=== PATIENT | female | born 1985 | race Caucasian/White ===

== ENCOUNTER 2017-05-17 18:26 | Inpatient (IN) | payer MEDICAID, OTHER ==
[~2017-05-17] VITALS: Ht 167.6 cm; Wt 60.0 kg
[2017-05-17] MEDS ORDERED: Magnesium Hydroxide 10 mL Oral Concentration PO PRN (23:50)
[2017-05-17] MEDS ORDERED: Benzocaine-Menthol Lozenge 2/Pkg PO PRN (23:50)
[2017-05-17] MEDS ORDERED: diphenhydrAMINE 50 mg Capsule PO PRN (23:50)
[2017-05-17] MEDS ORDERED: Alum-Mag Hydrox-Simeth 30 mL Suspension PO PRN (23:50)
--- NOTE | 2017-05-18 01:04 | NUR ---
Nursing Admit Note Pt arrival with hospital staff and security via stretcher from [facility] at 2310. Jelena is JEROD'ed from [facility] on May 17 at 1735. Is reported that patient is a danger to self and others. Noted to require restraints prior to arrival through the night. Pt appears hypomanic, paranoid and religiously preoccupied. Pt denies mental health care or medications in recent past. Reports one hospitalization at [facility] approximately two years ago. Denies any diagnosis at that time. Noted from previous acute care facility to have recently quit her job and writing threatening remarks to friends on face book. Pt was picked up by police at her motel room r/t complaints of noise and bizarre behavior with a torch and bean picker fluid somehow involved. Pt reports meeting the police at the door with a knife because they where sneaking around. Is reported patient physically resisted arrest. During intake interview patient was asked to remove her multiple necklaces which she did, but staff was not to touch them, and insisted that we record said necklaces as Gold with each having a certain gold content which we did not confirm. Pt accepted medications upon arrival, had snacks and took a shower prior to going to sleep.
[2017-05-18 12:31] VITALS: BP 108/63; PULSE 94; RESP 18
[2017-05-18] MEDS ORDERED: Benzocaine-Menthol Lozenge 2/Pkg PO PRN (14:15)
--- NOTE | 2017-05-18 15:16 | HP ---
[address] [address] HISTORY AND PHYSICAL PATIENT: SONAL SCHAEFFER : 1985 MR#: [id number] ADMIT: 05/17/2017 JOB ID: [id number] IDENTIFICATION: The patient is a 31-year-old single, white female. She is currently staying at a [facility] [place] and [place]. She has two children ages seven and nine that stay with the grandmother in [place]. She is on social security disability for unclear reasons. REASON FOR ADMISSION: Client detained at the [facility] for grave disability, danger to self and danger to others after police were called to the [facility] [place] for a disturbance and patient was found with a large knife in her hand, a blow torch and dump worker fluid. She made threats that she was going to burn the hotel room down. HISTORY OF PRESENT ILLNESS: The patient presents for evaluation and treatment of psychosis. I met with her for a 60 minute evaluation and reviewed course and records kept by [facility]. I also reviewed course and records kept by [facility] and her skilled nursing paperwork. The patient's main issue is psychosis. The condition is acute and has been developing over an unclear number of days. At present, it is of a moderate intensity manifesting with symptoms of thought disorganization, paranoia and difficulty with impulse control. All the above symptoms are made worse by interpersonal relationship conflicts. She stated that she was under extreme stress due to "white trash dramas." Client is a relatively poor historian due to thought disorganization and she had a difficult time relating a coherent history. She is not on any medications and stated that she had not previously been treated except for a two day stay at [facility] for unclear reasons. She stated that she is sleeping excessively and has a high amount of anxiety mainly due, per her report, interpersonal relationship conflicts. Currently she is presenting with moderate emotional liability and impairment in reality testing. Her judgment, insight and impulse control are all impaired. PSYCHIATRIC REVIEW OF SYSTEMS: For depression, yony, and trauma were negative. SUBSTANCE ABUSE: Positive for daily marijuana. Psychosis positive for delusional thought. Believes she has an FBI secret agent involved with the [place] mob. Believes she has special ruiz and has significant thought disorganization. PHYSICAL REVIEW OF SYSTEMS: Negative for constitution, cardiac, respiratory, GI, or genitourinary systems. MEDICATIONS: None. ALLERGIES: SULFA. ILLNESSES: None. FAMILY MEDICAL HISTORY: Client is a poor historian. PAST PSYCHIATRIC HISTORY: Client poor historian. Reports one admission at [facility] for two days within the past five years. PSYCHOSOCIAL HISTORY: Client states she was born at [facility] in [place]. At age [age] she stated her mother relinquished care to her grandparents. HISTORY OF TRAUMA: Client denies. DRUG AND ALCOHOL: Client smokes cigarettes and marijuana daily. Denies IV drug abuse. LETHALITY: Denies suicidal ideation, previous suicide attempts or homicidal ideation. RELATIONSHIP HISTORY: Single, two children, ages seven and nine currently with their grandmother. CONGREGATION: "A Masonic Tenriism." LEGAL HISTORY: None. VITAL SIGNS: 108/63, pulse 94, respirations 18, afebrile. PHYSICAL EXAMINATION: Reviewed from [facility] and normal. LABORATORIES: Electrolytes, thyroid, liver function normal. CBC normal. UA normal. UDS positive for THC. MENTAL STATUS EXAMINATION: Client appeared disheveled with multiple sores on face and forearms. She has primitive tattoos on arms and legs. She had good eye contact. Her behavior was energetic and restless. Attitude was cooperative and friendly. Speech normal rate and rhythm. Mood: Euphoric. Affect congruent, high intensity. Thought process: Client had a difficult time relating a coherent history. She was able to appreciate simple abstractions. She did not appear to be responding to internal stimuli. Thought content: Significant for themes of describing interpersonal relationship problems at home. She minimizes symptoms of delusion or intent to burn down the apartment. She has seemed to be confused about events leading up to admission. Denied suicidal ideation or psychotic symptoms of auditory or visual hallucinations. Alert and oriented to person, place and date. Immediate, short, and long-term memory were mildly impaired. Attention and concentration mildly impaired. Insight and judgment poor. Impulse control highly contained, yet having a difficult time handling impulses of fear. Reality testing is impaired. Competence to handle current stressors is currently being overwhelmed. IMPRESSION: The patient is a 31-year-old white female, who presents on a 72 hour involuntary treatment hold after police were called to her hotel room stating that patient was threatening to burn it down. When they arrived, she had supplies in hand including dump worker fluid and a torch to burn something. She reportedly made threats to burn down the hotel room. When they arrived, she was holding a large knife and was agitated and combative. She did comply with officers when they asked her to put down the knife. The patient also was reported to have delusional thoughts of an being an FBI secret agent with special ruiz. Her thought process was disorganized. The patient does not describe previous psychiatric illness. She minimized symptoms of yony or bipolar mood disorder. She was agreeable to a trial of antipsychotic medications to treat the above symptoms. Client for unclear reasons is not the group manager of her two children who are staying with her grandmother. We will certainly need to get more data before we can appropriately recommend treatment for the patient. DIAGNOSIS: AXIS I 1. Psychosis, unspecified. 2. Rule out substance induced psychosis. 3. Rule out bipolar mood disorder with psychosis. AXIS II Defer. AXIS III None. AXIS IV Unknown. AXIS V Current global assessment of functioning equal to 35. PLAN: 1. Recommend client be admitted to our unit and be provided with a high degree of safety through the structure and active adult engagement she will receive here. Will have her participate in one-to-one unit and group activities focused on improving reality based thinking, coping skills and having her come up with a treatment plan for after discharge. 2. We will check a urine test and then initiate a course of antipsychotics recommending starting low at 5 mg of Zyprexa daily to see if this can help her resolve some of the above symptoms. 3. Client will have a chance to talk with her pyrotechnics press tender tomorrow on and will go to court on Tuesday if she requires additional time on an involuntary basis. 4. Anticipate a five day stay.
--- NOTE | 2017-05-18 15:57 | NUR ---
Obs Dayshift Pt is restless, disorganized, and has some difficulty staying on task and tracking. Pt has pressured speech. Pt did attend groups, spent much of her free time out in the milieu and going back and forth to her room, or exercising. Pt changed her clothing many times today, pacing, many requests. Pt is polite and engaging w/ staff and peers, appropriate, and participating. Ok ADL's, Good meals
--- NOTE | 2017-05-18 19:15 | NUR ---
Insulation Technician/Counselor: S: "I have a long story to tell you about the star on my forehead." O: Patient only slept 4.75 hours last night as per staff. She denies S/I and H/I. She denies auditory and visual hallucinations. Depression and anxiety were not rated. A: Patient is cooperative, euphoric, restless, energetic, confused at times, poor insight, poor judgment. P: Follow the care plan, coordinate with out-patient providers.
--- NOTE | 2017-05-18 19:17 | NUR ---
[id number]. nurs. S: "My face is getting better from being here... my neck hurts after I slept.... I think they manhandled me more than they should I wasn't doing anything in the motel it was a misunderstanding... O:Pt out on unit scattered, pleasant, many requests but accepting refusals pleasantly, many changes of clothes. Pt restless around unit, busy on phone attending grps. Pt given tylenol 650mg for neck pain, nicotine lozenges for craving and cepacol for sore throat. pt reported mood good, some insight into poor coping prior to admit. P:CNCP
--- NOTE | 2017-05-19 02:13 | NUR ---
Nursing noc Pt out and about in milieu noted to change clothing once. Eating snack and watching TV at times. Pleasant and cooperative with staff. Urine lab test ordered. Pt noted to sleep well through the night. Continuing to monitor mood behavior and emotional state. Q15 minute safety checks throughout the night. CP
--- NOTE | 2017-05-19 05:07 | NUR ---
nursing, nights, 11-7 s- i started my period. can i have a hot pack. here is the urine sample. o- has appeared to sleep 2245 to 0230 and 0345 to 0450. given toiletries and provided urine sample which was taken to the lab. assessed q 15 minutes. a- generally appropriate, interrupted sleep, no apparent distress. p- monitor behavior/emotional state, quality, times and amount of sleep, use and effect of medication. nicholas
--- NOTE | 2017-05-19 11:27 | PCM.PNPSY ---
Subjective Date of Service May 19, 2017 Subjective I spent 30 minutes both reviewing treatment plan with our clinical team, interviewing the patient and providing supportive/educational psychotherapy. I spent more than 50% of the time counseling the patient. I reviewed the treatment plan with the patient and discussed options available including the potential risks, benefits and side effects. Jelena reports a marked improvement in thought organization and mood stability. Staff reports that she has been active and participating well in one -to-one unit and group activities. She slept 6 hours and denies depression manic or psychotic symptoms review. We talked at length about the events leading to admission. She denied a desire to burn down her apartment rather stated that that was the way that she smoked her marijuana. She detailed how she uses a blow torch instead of a marijuana pipe to conserve her marijuana. We talked about using marijuana versus using psychiatric medications to treat her anxiety and agitation. She denies medication side effects. She was able to identify her medications and what they were used to treat. Current Medications Current Medications Acetaminophen 650 mg Q4H PRN PO Last administered on 05/18/17 18:47; Admin Dose 650 MG; Start 05/17/17 at 23:50 Benzocaine/Menthol 1 lozenge Q2H PRN PO Last administered on 05/18/17 18:48; Admin Dose 1 LOZENGE; Start 05/17/17 at 23:50 Nicotine 1 patch DAILY TOPICAL Last administered on 05/19/17 07:56; Admin Dose 1 PATCH; Start 05/18/17 at 08:30 Nicotine Polacrilex 2 mg Q4H PRN PO Last administered on 05/18/17 18:47; Admin Dose 2 MG; Start 05/17/17 at 23:50 Olanzapine 10 mg NOW ONCE PO Last administered on 05/18/17 00:08; Admin Dose 10 MG; Start 05/17/17 at 23:50; Stop 05/17/17 at 23:51; Status DC Mental Status Exam Appearance: Neat/well groomed Attitude: Pleasant, Cooperative Behavior: No unusual behavior Affect: Well Modulated/Appropriate Mood: Euthymic Thought Process/Associations: Logical/Sequential, Goal Directed Speech Production: Normal Speech Rate: Normal Speech Articulation: Normal Thought Content: Appropriate Danger to Self/Suicidal Ideati: None Danger to Others: None Consciousness: Alert Orientation: Person, Place, Date, Situation Memory: Grossly Intact Estimate Intellectual Function: Average Basis for IQ estimate: Awareness current events, Word use/vocabulary, Educational history, Employment history Attention/Concentration & Cogn: Grossly Intact Insight: Good Judgement: Limited Mental Health Plan The patient is a 31-year-old white female, who presents on a 72 hour involuntary treatment hold after police were called to her hotel room stating that patient was threatening to burn it down. When they arrived, she had supplies in hand including exchange floor manager fluid and a torch to burn something. She reportedly made threats to burn down the hotel room. When they arrived, she was holding a large knife and was agitated and combative. She did comply with officers when they asked her to put down the knife. The patient also was reported to have delusional thoughts of an being an FBI secret agent with special ruiz. Her thought process was disorganized. The patient does not describe previous psychiatric illness. She minimized symptoms of yony or bipolar mood disorder. She was agreeable to a trial of antipsychotic medications to treat the above symptoms. Jelena reports a marked improvement in thought organization and mood stability today. Staff reports that she has been active and participating well in one-to- one unit and group activities. She slept well and denies depression manic or psychotic symptoms review. We talked at length about the events leading to admission. She denied a desire to burn down her apartment rather stated that that was the way that she smoked her marijuana. She detailed how she uses a blow torch instead of a marijuana pipe to conserve her marijuana. We talked about using marijuana versus using psychiatric medications to treat her anxiety and agitation. [place] DIAGNOSIS: AXIS I 1. Psychosis, unspecified. 2. Rule out substance induced psychosis. 3. Rule out bipolar mood disorder with psychosis. AXIS II Defer. AXIS III None. AXIS IV Unknown. AXIS V Current global assessment of functioning equal to 40. Medications Treatments Patient is being provided with a high degree of safety through our unit structure and active adult engagement provided by our mental health professionals, mental health technicians, psychiatric nurses and myself. We are focusing on developing improved coping skills and identifying stressors that may have led to current episode. We will attempt to: * Integrate into therapeutic groups, milieu and individual therapy. * Maintain in a closely monitored and structured unit * Provide low-stimulation environment * Assess degree of lability of affect and impulse control * Complete safety plan * Denies thoughts of harm to self and/or others * Establish a consistent sleep pattern * Medication effective in stabilization of mood and/or thought process * Reduce the risk of imminent harm to self and/or others by providing a safe environment * Tolerates medication without side effects Patient will be on the following psychiatric medications: Zyprexa 5 mg at bedtime Education: Educate patient about recreational drug use as an etiology Educate about metabolic etiologies related to obesity Patient's legal status Patient is on a 72 hour involuntary treatment hold. Patient will be given the opportunity to talk to her cook restaurant today. It is possible that she will sign in voluntarily tomorrow or discharge. Anticipated number of hospital days to achieve above goals: 3 Disposition: Home Albaro Tinsley MD May 19, 2017 11:27 Albaro Tinsley MD May 19, 2017 11:27
[2017-05-19 13:27] VITALS: BP 122/55; PULSE 82; RESP 18
--- NOTE | 2017-05-19 18:44 | NUR ---
Gerontology Aide/Counselor: S: "I learned a lot of new things in your group session today." O: Patient slept 5.75 hours last night as per staff. She denies S/I and H/I. She denies auditory and visual hallucinations. Depression is 0/10 and anxiety is 0/10. This feature writer spoke with Virgen Herrmann who will corn picker patient tomorrow at 2:00pm. A: Patient is cooperative, pleasant, euthymic, limited judgment. P: Follow the care plan, coordinate with out-patient providers.
--- NOTE | 2017-05-19 19:42 | NUR ---
[id number]. nurs. S: Pt with bright affect, engaged in unit program, reporting that mood is stable and denies depression anxiety or AHs. Pt appeared less disorganised still somewhat scattered. Pt has no SI or Pt mostly not interacting with others. Pt reporting more awareness of events leading to hospitalization. Pt not reporting any px s/es from meds. Possible plan for discharge tomorrow. Pt has completed safety plan. P:MALCOLM
--- NOTE | 2017-05-20 04:27 | NUR ---
nursing, nights, 11-7 s/o- has appeared to sleep after 2214. up briefly at 0415. assessed q 15 minutes. a- no apparent distress. p- monitor behavior/emotional state, quality, times and amount of sleep, use and effect of medication. nicholas
--- NOTE | 2017-05-20 13:04 | PCM.DIMED ---
Discharge Instructions Date of Service May 20, 2017 Dates of Hospitalization May 17, 2017 at 23:13 Discharge Diagnosis Discharge Diagnosis AXIS I 1. Psychosis, unspecified. 2. Rule out substance induced psychosis. 3. Rule out bipolar mood disorder with psychosis. AXIS II Defer. AXIS III None. AXIS IV Unknown. AXIS V Current global assessment of functioning equal to 45 Medication Instructions Additional med instructions I Strongly encouraged patient to follow up with outpatient care: 1-Recommended patient takes medication as prescribed and not alter this unless under the direct care of a provider. 2-Recommend client refrain from recreational drugs and alcohol while taking psychiatric medications. 3-Recommend client start a 12 step program to deal with issues of addiction. 4-Recommend patient attempt to find a therapist or group to deal with impulse control and interpersonal relationship conflicts Diet Discharge Diet: No restrictions Activity Discharge Activity: No restrictions Call your provider Call your provider for: Fever or Chills Patient Instructions Follow-up plan Plan to follow-up with local mental Health Center in [place]. Appointment times with counselor and prescriber per case picker AJ Follow-up with PCP in: 2 weeks Albaro Tinsley MD May 20, 2017 13:04
[2017-05-20] MEDS ORDERED: OLAN5TAB PO (13:06)
[2017-05-20 14:27] VITALS: BP 114/71; PULSE 85; RESP 18
--- NOTE | 2017-05-20 14:40 | DIS ---
[address] [address] DISCHARGE SUMMARY PATIENT: SONAL SCHAEFFER : 1985 MR#: [id number] ADMIT: 05/17/2017 JOB ID: [id number] DIS: DATE OF DISCHARGE: 05/20/2017 IDENTIFICATION: Patient a 31-year-old, single, white female, struggling with issues of polysubstance abuse. She is currently staying at a hotel in [place]. She has two children, ages seven and nine, that stay with her grandmother in [place]. She is on Social Security Disability for unclear reasons. REASON FOR ADMISSION: Client detained, 72-hour involuntary treatment from [facility] after police called for a welfare check and found patient with a knife, a blow torch, and jewel oliving machine operator fluid. SUMMARY OF PRESENT ILLNESS: The patient is a 31-year-old, white female, who presents on a 72-hour involuntary treatment hold after police were called to her hotel room, stating that patient had been making nonspecific threats to burn down the hotel room. When they arrived, she had supplies in hand, jewel oliving machine operator fluid and a torch. She reportedly made threats to burn down the hotel room. When they did arrive she was holding a large knife, agitated and combative. She did comply with officers when they asked her to put down the knife. She reported delusional thoughts of being an FBI secret agent with special ruiz. Her thoughts were disorganized. She minimized symptoms of yony or psychosis. She denied previous history of psychiatric illness. She was vague about substance use and frequency. HOSPITAL COURSE: Client admitted to our unit and was provided with a high degree of safety through the structure and active adult engagement she received here. We had her participate in one-to-one unit and group activities focused on improving coping skills, reality based thinking, and coming up with a safety plan and treatment plan for after discharge. She participated actively and well in all the above activities. Client was also given Zyprexa 5 mg h.s. to target symptoms of psychosis. She tolerated this well with no side effects and showed rapidly improving thought organization and mood stabilization over the past three days. Today, client is requesting discharge. Her 72-hour involuntary treatment hold is up and she detailed to me a reasonable treatment plan and safety plan and I will discharge her today. MENTAL STATUS: Neatly dressed. Good eye contact. Calm, pleasant, cooperative. Normal speech. Mood was euthymic. Affect is congruent with normal intensity. Thought process: Client is now able to relate a coherent history though not around the 72 hours before or after her retirement. She does not appear to be responding to internal stimuli and is able to appreciate simple and complex abstractions. Thought content: Significant for themes of future planning, how she is going to take care of herself. We spoke at length about the danger of using recreational drugs with psychiatric medications and the thought content showed that she appreciated this and asked appropriate questions. She denied suicidal ideation, homicidal ideation or auditory hallucinations. She could not remember making the statements that she wanted to burn down the hotel room, stating that the family readiness support assistant is one of her friends and she would never do this. Client was alert and oriented to person, place, and date. Immediate, short, and long-term memory intact. Attention and concentration relatively normal. Insight and judgment appropriate. Impulse control highly contained. Reality testing intact. Competence to handle current stress appears to be at baseline. DIAGNOSIS: [place] I. Psychosis unspecified, rule out substance induced psychosis. Rule out bipolar mood disorder with psychosis. [place] II. None. [place] III. None. [place] IV. Unknown. [place] V. Current Global Assessment of Functioning equal to 45. DISCHARGE PLAN: Client to follow up with local mental health center in [place]. Appointments to be scheduled per patient case managerDerick DISCHARGE MEDICATIONS: Zyprexa 5 h.s. for one month and then re-evaluate. ACTIVITY AND DIET: No restriction except recommend client refrain from recreational drugs and alcohol while taking psychiatric medications. Recommend she not change her medications unless under the direction of a physician. CONDITION ON DISCHARGE: Good. PROGNOSIS: Guarded as client is unlikely to participate in a 12-step program to be able to maintain sobriety. I would anticipate the client will continue to have difficulty with readmission if she continues to use substances.
--- NOTE | 2017-05-20 14:56 | NUR ---
Process Control Technician/Counselor: S: "I'm going to miss you guys, it's been interesting being here." O: Patient slept 6 hours last night as per staff. She denies S/I and H/I. She denies auditory and visual hallucinations. Depression is 0-1/10 and anxiety is 2/10. When asked her mood, patient stated, "Calm." Out-patient appointment: [facility], 05/24/17 at 9:00am. A: Patient is cooperative, pleasant, hopeful, future oriented, fair insight, fair judgment. P: Follow the care plan, coordinate with out-patient providers.
--- NOTE | 2017-05-20 14:57 | NUR ---
Nursing Note [id number] Mood, Behavior S/O: Pt out of room in milieu most of the day. Pt tearful in room stating she was anxious & disappointed her friend would be late in picking her up today. She rated her depression at a "7" on a scale of 1-10/10 the best. She denies any suicidal/homicidal ideation. Pt has signed all papers & expressed understanding of all discharge instructions including appointments. Pt's prescription to be called into [facility] prior to discharge. A: Pt ready to discharge as soon as ride is available. P: D/C this afternoon.
--- NOTE | 2017-05-20 17:50 | NUR ---
Nurses Discharge Patient discharged to home with her family with all belongings,follow-up appointments in place,prescription called to her pharmacy. Her mood was cheerful and eager to return home.
== END 2017-05-20 17:50 | disposition home or self-care (01) | DRG 885 ==
LOC: MHC 23:13
PROVIDERS: ADMIT Psychiatry & Neurology Psychiatry; ATTEND Psychiatry & Neurology Psychiatry
DX: F29 Unspecified psychosis not due to a substance or known physiological condition (principal); F17.200 Nicotine dependence, unspecified, uncomplicated; F12.90 Cannabis use, unspecified, uncomplicated